=== PATIENT | male | born 1980 | race Caucasian/White ===

== ENCOUNTER 2022-01-22 15:38 | Inpatient (IN) | payer OTHER ==
[~2022-01-22] VITALS: Ht 170.2 cm; Wt 89.4 kg
[~2022-01-22 15:38] MED LIST: ASPI-1420 PO; CLOP75TA15 PO; SIMV-46 PO
--- NOTE | 2022-01-22 15:45 | NUR ---
RECEIVED PT 41 YRS MALE CAME FROM HOME C/O LOSS MEMMRY AWAKE AND ALERT RESPIRATION SPONT AND EASY MOVING ALL EXTMITY NO DIFFFECITY
--- NOTE | 2022-01-22 15:57 | NUR ---
PT TAKEN TO CT.
[2022-01-22] MEDS ORDERED: IV NS 0.9% 1,000 ML BAG IV ONE (16:00)
--- NOTE | 2022-01-22 16:00 | NUR ---
BLOOD DROW AND SENT TO LAB
[2022-01-22] MEDS ORDERED: IOHEXOL-350 100 ML VIAL IV ONE (16:01)
[2022-01-22] MEDS ORDERED: IV NS 0.9% 250 ML IV ONE (16:01)
[2022-01-22] MEDS ORDERED: CT SWABBABLE VALVE TRANS SET 1 EA INFUS.SET MC ONE (16:01)
[2022-01-22 16:21] LABS: BASOPHILS % (AUTO) 0.4 % (0.0-2.0); EOSINOPHILS % (AUTO) 0.3 % (0.0-6.0); HEMATOCRIT 45 % (39-51); HEMOGLOBIN 15.8 g/dL (13.5-17.5); LYMPHOCYTES # (AUTO) 1.4 K/uL (0.8-4.8); LYMPHOCYTES % (AUTO) 11.6 % (20.0-44.0); MEAN CORPUSCULAR HGB CONC 35 g/dl (31.0-36.0); MEAN CORPUSCULAR VOLUME 83 fL (80-96); MONOCYTES # (AUTO) 0.5 K/uL (0.1-1.30); MONOCYTES % (AUTO) 4.1 % (2.0-12.0); NEUTROPHILS # (AUTO) 10.2 K/uL (1.8-8.9); NEUTROPHILS % (AUTO) 83.6 % (43.0-81.0); PLATELET COUNT (AUTO) 333 K/uL (150-450); RED BLOOD CELL COUNT(AUTO) 5.43 MIL/uL (4.5-6.0); WHITE BLOOD COUNT (AUTO) 12.2 K/uL (4.3-11.0)
[2022-01-22 16:42] LABS: CALCIUM, SERUM 9.8 mg/dL (8.5-10.1); CARBON DIOXIDE 23 mmol/L (21-32); CHLORIDE 104 mmol/L (98-107); CREATININE 0.9 mg/dL (0.6-1.3); GLUCOSE 114 mg/dL (74-106); POTASSIUM 3.6 mmol/L (3.5-5.1); SODIUM SERUM 140 mmol/L (136-145); UREA NITROGEN, BLOOD 11 mg/dL (7-18)
--- NOTE | 2022-01-22 16:45 | NUR ---
MOVE SHEET SUBMITTED.
[2022-01-22 16:46] LABS: CHOLESTEROL 119 mg/dL (<200); HDL CHOLESTEROL 47 mg/dL (40-60); LDL 56 mg/dL (0-99); TRIGLYCERIDES 108 mg/dL (30-150)
[2022-01-22 16:48] LABS: ALANINE AMINOTRANSFERASE 44 U/L (12-78); ALBUMIN 4.5 g/dL (3.4-5.0); ALKALINE PHOSPHATASE 62 U/L (46-116); ASPARTATE AMINOTRANSFERASE 24 U/L (15-37); BILIRUBIN,DIRECT 0.1 mg/dL (0.0-0.2); BILIRUBIN,TOTAL 1.1 mg/dL (0.2-1.0); TOTAL PROTEIN, SERUM 7.6 g/dL (6.4-8.2)
[2022-01-22] MEDS ORDERED: ATOR20TA PO (16:50)
[2022-01-22] MEDS ORDERED: FAMO40TA7 PO (16:50)
[2022-01-22] MEDS ORDERED: VALS160T29 PO (16:50)
--- NOTE | 2022-01-22 17:00 | NUR ---
RESTING AT THIS TIME NO PAIN ON PHONE
--- NOTE | 2022-01-22 18:27 | NUR ---
[facility] CALLED TITLE INSPECTOR PAGED.
[2022-01-22] MEDS ORDERED: MAG HYDROX/AL HYDROX/SIMETH 30 ML UDC PO PRN (19:00)
[2022-01-22] MEDS ORDERED: Z GUARD REMEDY 4 OZ OINT TP PRN (19:00)
[2022-01-22] MEDS ORDERED: ONDANSETRON HCL/PF 4 MG/2 ML VIAL IVP PRN (19:00)
[2022-01-22] MEDS ORDERED: MAGNESIUM HYDROXIDE 30 ML UDC PO PRN (19:00)
[2022-01-22] MEDS ORDERED: ENALAPRILAT INJ (1.25 MG/ML) 1.25 MG/ML VIAL IV PRN (19:00)
--- NOTE | 2022-01-22 19:01 | NUR ---
ECCHCARDO GRAM AT BED SIDE
--- NOTE | 2022-01-22 19:15 | NUR ---
YENY WATKINS SENT TO LAB
--- NOTE | 2022-01-22 19:23 | NUR ---
RECIEVED CALL FROM DR BRANDON REQUESTING ICU BED UPGRADE DUE TO CONSULT WITH NEUROLOGIST JOSE
--- NOTE | 2022-01-22 19:24 | NUR ---
HAND OFF MELVI RODRIGUEZ
--- NOTE | 2022-01-22 20:19 | NUR ---
[facility]SA SWAB COLLECTED AND SENT TO LAB. PATIENT'S BELONGINGS LIST DONE.
--- NOTE | 2022-01-22 20:57 | NUR ---
JUANJO, [phone] PT IS OK TO GIVEN ANY INFORMATION ABOUT HIS CARE
--- NOTE | 2022-01-22 21:05 | NUR ---
REPORT GIVEN TO JENNIFER LIN FOR AYANA.
--- NOTE | 2022-01-22 21:19 | NUR ---
PATIENT TRANSFERRED UNDER ACLS
[2022-01-22 21:27] VITALS: BP 129/50
[2022-01-22] MEDS: IV NS 0.9% 1,000 ML IV SCH (21:37)
[2022-01-22] MEDS: BLOOD SUGAR DIAGNOSTIC 1 EACH STRIP IN SCH (21:38)
[2022-01-22] MEDS: ASPIRIN 325 MG TABLET PO SCH (21:38)
[2022-01-22 22:00] VITALS: BP 124/88
[2022-01-22] MEDS ORDERED: ATORVASTATIN 10 MG TABLET PO SCH (22:00)
--- NOTE | 2022-01-22 22:03 | NUR ---
ICU/RN: DR. SHRESTHA MADE AWARE OF STROKE SCALE RESULTS 2 AND SWALLOW EVAL RESULTS PASS.
[2022-01-22 23:00] VITALS: BP 115/71
[2022-01-23] VITALS (27 sets, daily range): BP systolic 97–157; BP diastolic 65–140
[2022-01-23] MEDS ORDERED: BLOOD SUGAR DIAGNOSTIC 1 EACH STRIP IN SCH
[2022-01-23 04:38] LABS: BASOPHILS # (AUTO) 0.1 K/uL (0.0-0.2); BASOPHILS % (AUTO) 0.4 % (0.0-2.0); EOSINOPHILS % (AUTO) 1.3 % (0.0-6.0); HEMATOCRIT 42 % (39-51); HEMOGLOBIN 14.5 g/dL (13.5-17.5); LYMPHOCYTES # (AUTO) 2.6 K/uL (0.8-4.8); LYMPHOCYTES % (AUTO) 22.5 % (20.0-44.0); MEAN CORPUSCULAR HGB CONC 35 g/dl (31.0-36.0); MEAN CORPUSCULAR VOLUME 84 fL (80-96); MONOCYTES # (AUTO) 0.9 K/uL (0.1-1.30); MONOCYTES % (AUTO) 7.7 % (2.0-12.0); NEUTROPHILS % (AUTO) 68.1 % (43.0-81.0); PLATELET COUNT (AUTO) 293 K/uL (150-450); WHITE BLOOD COUNT (AUTO) 11.7 K/uL (4.3-11.0)
[2022-01-23 04:49] LABS: CALCIUM, SERUM 8.9 mg/dL (8.5-10.1); CREATININE 0.7 mg/dL (0.6-1.3); MAGNESIUM 2.2 mg/dL (1.8-2.4); PHOSPHORUS 4.1 mg/dL (2.5-4.9); POTASSIUM 3.4 mmol/L (3.5-5.1)
--- NOTE | 2022-01-23 07:00 | NUR ---
RN NOTES RECEIVED PT ON BED, A/Ox2-3, FOLLOWS COMMAND, NO DISTESS NOTED, REFUSED TO EAT BREAKFAST, ON TELE SR ,CONTINUE TO MONITOR
[2022-01-23] MEDS ORDERED: POTASSIUM CHLORIDE 20 MEQ TAB.PRT.SR PO ONE (08:00)
[2022-01-23] MEDS: BLOOD SUGAR DIAGNOSTIC 1 EACH STRIP IN SCH ×4 (08:29→21:51)
[2022-01-23] MEDS: FAMOTIDINE (20 MG) 20 MG TABLET PO SCH (08:36)
[2022-01-23] MEDS: ASPIRIN 325 MG TABLET PO SCH (08:36)
[2022-01-23] MEDS ORDERED: VALSARTAN 80 MG TABLET PO SCH (09:00)
--- NOTE | 2022-01-23 10:00 | NUR ---
RN NOTE PATIENT ABLE TO USE URINAL, OUT OF THE BED TO BEDSIDE COMMODE WITH ASSIST.
--- NOTE | 2022-01-23 10:00 | NUR ---
RN NOTES OK TO GET EEG DONE IN AM PER DR BURGOS .
--- NOTE | 2022-01-23 11:36 | NUR ---
RN NOTES REPORT GVEN TO EARL RODRIGUEZ FOR CONTINUATION OF CARE.
--- NOTE | 2022-01-23 12:14 | NUR ---
RN NOTE RESUMED CARE OF PATIENT, PATIENT ALERT DISORIENTED. DOES NOT COMPLAIN OF PAIN OR SOB AT THIS TIME.
--- NOTE | 2022-01-23 12:28 | NUR ---
SS Note: SS received consult for stroke. Pt. Is a 41-year-old White male who demonstrates adequate insight to the reason for hospitalization. Per EMR, pt. presents the hospital for sudden altered mental status. Pt. was oriented x3, alert, and cooperative. During interview, pt. was capable of following directions and appeared groomed. Pt.s speech was at a normal rate and pt.s mood was elevated. Pt. reported no hx of mental health, substance abuse, pt. denies suicidal ideation, or homicidal ideation. Pt. denies auditory hallucinations, visual hallucinations, paranoia, or delusions. Per pt., she smokes marijuana occasionally, but it does not affect her daily life. SW explored pt.s living situation. Per pt., he lives with his [[id number] [place] [address]]. SW explored pt.s stroke hx. Per pt., he had 2 strokes in the past [about a year ago], and this would be his third. Pt. could not recall what happened prior to being hospitalized. Pt. stated that he is ambulatory and independent with his ADLs. Plan: SW provided available resources and pt. accepted. Upon discharge, per pt., he wants to return home with [[id number] [place] [address]]. SW access pt. with the PHQ9, pt. scored a 4, there is no need for a psych consult. Resources Provided: Stroke Empowerment Packet.
[2022-01-23] MEDS: IV NS 0.9% 1,000 ML IV SCH ×2 (12:52→22:53)
--- NOTE | 2022-01-23 15:10 | NUR ---
RN NOTE PATIENTS MOTHER BROUGHT IN PICTURES OF MEDICATION THE PATIENT TAKES AT HOME. MEDICATION WAS ENTERED UNDER MEDICATION RECONCILIATION DR ALEKSANDR ERWIN.
[2022-01-23] MEDS: ACETAMINOPHEN 325 MG TABLET PO PRN (16:45)
--- NOTE | 2022-01-23 18:49 | NUR ---
RN CLOSING NOTE PATIENT IS A/O 2-3, RESPONDS TO NAME DOES NOT COMPLAIN OF SOB OR PAIN AT THIS TIME. PATIENT IS ON ROOM AIR WITH O2 SAT 98%. IV ACCESS ON L AND RIGHT AC 18 G CURRENTLY RUNNING NS AT 75MLS/HR. PATIENTS MOTHER IS AT BEDSIDE. SAFETY MEASURES IN PLACE, CALL LIGHT WITHIN REACH, BED LOCKED IN THE LOWEST POSITION 2 SIDE RAILS UP. PATIENT REMINDED TO ASK FOR ASSISTANCE WHEN GETTING UP. WILL ENDORSE TO NIGHT NURSE FOR AYANA.
--- NOTE | 2022-01-23 20:00 | NUR ---
ICU NOTES PATIENT A/OX3 but forgetful.Ambulatory.Mother at bedside.VS stable.SR.Respiration even and unlabored.MRI BRAIN done.Patient denies pain or nausea on vomiting.IVF infusing & site intact. Safety precaution reinforced.Encouraged patient to call for assistance.Call light at bedside.
[2022-01-23] MEDS: CYANOCOBALAMIN 500 MCG TABLET PO SCH (21:52)
[2022-01-23] MEDS: CHOLECALCIFEROL (VITAMIN D 3) 400 UNIT TABLET PO SCH (21:52)
[2022-01-23] MEDS: ATORVASTATIN 10 MG TABLET PO SCH (21:52)
--- NOTE | 2022-01-23 22:00 | NUR ---
ICU NOTES Patient ambulated to restroom with standby assist does not want to use commode at bedside.Gait steady.BM x1.Verbalized comfort post BM.
[2022-01-24] VITALS (24 sets, daily range): BP systolic 108–180; BP diastolic 48–96
[2022-01-24] MEDS: ACETAMINOPHEN 325 MG TABLET PO PRN ×2 (02:36→16:39)
--- NOTE | 2022-01-24 03:00 | NUR ---
ICU NOTES Patient complaints of headache medicated with Tylenol ad prn.Verbalized relief.
--- NOTE | 2022-01-24 06:23 | NUR ---
END NOTE Patient resting in no acute distress.Neuro status unchanged.VSS.SR.Hemodynamically stable. Patient slept most of the night.Refused AM care.IVF infusing well.Safety precaution maintained. Call light at bedside.
[2022-01-24] MEDS: BLOOD SUGAR DIAGNOSTIC 1 EACH STRIP IN SCH ×4 (07:41→21:22)
--- NOTE | 2022-01-24 07:45 | NUR ---
RN OPENING NOTES PT RESTING IN BED A/O X 2-3. NO CHANGE FROM NEURO BASELINE. PT ON RA SATING AT 96%. TELE MONITOR READS SR. IV ACCESS NOTED AT L AND R AC 18G'S. RUNNING NS AT 75 ML/HR. ALL SAFETY MEASURES IN PLACE. WILL CONT TO MONITOR THROUGHOUT SHIFT.
[2022-01-24] MEDS ORDERED: POTASSIUM CHLORIDE 20 MEQ TAB.PRT.SR PO ONE (08:00)
[2022-01-24] MEDS: ASPIRIN 325 MG TABLET PO SCH (08:17)
[2022-01-24] MEDS: CLOPIDOGREL BISULFATE 75 MG TABLET PO SCH (08:18)
[2022-01-24] MEDS: cetrizine 10 MG TABLET PO SCH (08:18)
[2022-01-24] MEDS: MULTIVITAMINS,THERAGRAN 1 UDTAB TABLET PO SCH (08:18)
[2022-01-24] MEDS: FAMOTIDINE (20 MG) 20 MG TABLET PO SCH ×2 (08:18)
[2022-01-24] MEDS ORDERED: FEXOFENADINE HCL (60 MG) 60 MG TABLET PO SCH (09:00)
[2022-01-24] MEDS ORDERED: ASPIRIN 325 MG TABLET PO SCH (09:00)
[2022-01-24] MEDS ORDERED: VALSARTAN 80 MG TABLET PO SCH (09:00)
[2022-01-24] MEDS: IV NS 0.9% 1,000 ML IV SCH (10:17)
--- NOTE | 2022-01-24 17:42 | NUR ---
Report given to Juan RODRIGUEZ in [facility]. Pt is ready to transfer after finishing dinner.
--- NOTE | 2022-01-24 18:38 | NUR ---
PT TRANSFERRED TO [address] [place] [address] 328 BED 2 SUCCESSFULLY WITHOUT COMPLICATION. REPORT GIVEN TO HERMANN RODRIGUEZ.
--- NOTE | 2022-01-24 20:26 | NUR ---
RN NOTES RECEIVED PATIENT IN BED, ALERT/ORIENTED X3, ROOM AIR, NO COMPLAIN OF PAIN, NO DISTRESS, GENERALIZED WEAKNESS, TRANSFERRED FROM ICU, SR ON THE TELE, KEPT SAFE, WILL CONTINUE TO MONITOR.
[2022-01-24] MEDS: CYANOCOBALAMIN 500 MCG TABLET PO SCH (21:06)
[2022-01-24] MEDS: CHOLECALCIFEROL (VITAMIN D 3) 400 UNIT TABLET PO SCH (21:06)
[2022-01-24] MEDS: ATORVASTATIN 10 MG TABLET PO SCH (21:07)
[2022-01-25] VITALS: BP 110/80
[2022-01-25] MEDS: IV NS 0.9% 1,000 ML IV SCH ×2 (00:20→06:24)
[2022-01-25] MEDS: ACETAMINOPHEN 325 MG TABLET PO PRN ×2 (03:40→10:29)
[2022-01-25 04:00] VITALS: BP 124/85
[2022-01-25] MEDS: BLOOD SUGAR DIAGNOSTIC 1 EACH STRIP IN SCH ×2 (06:41→12:11)
--- NOTE | 2022-01-25 06:50 | NUR ---
RN NOTES ALERT/ORIENTED X4, STABLE ON ROOM AIR, GIVEN TYLENOL FOR HEADACHE, NO NEURO DEFICITS, AMBULATES, CONTINENT OF BOWEL AND BLADDER. NS AT 75 ML/HR, ACCUCHECK WITHOUT SLIDING SCALE. VS STABLE, AFEBRILE. PER DR. BERG, OUTPATIENT FOLLOW UP FOR ANEURYSM. DR. BERG WILL PROVIDE REFERRAL TO NEURO INTERVENTIONAL TEAM.
[2022-01-25 07:06] LABS: BASOPHILS % (AUTO) 0.5 % (0.0-2.0); EOSINOPHILS % (AUTO) 2.1 % (0.0-6.0); HEMATOCRIT 45 % (39-51); HEMOGLOBIN 15.6 g/dL (13.5-17.5); LYMPHOCYTES # (AUTO) 2.3 K/uL (0.8-4.8); LYMPHOCYTES % (AUTO) 26.7 % (20.0-44.0); MEAN CORPUSCULAR HGB CONC 35 g/dl (31.0-36.0); MEAN CORPUSCULAR VOLUME 84 fL (80-96); MONOCYTES # (AUTO) 0.8 K/uL (0.1-1.30); NEUTROPHILS # (AUTO) 5.2 K/uL (1.8-8.9); NEUTROPHILS % (AUTO) 61.7 % (43.0-81.0); PLATELET COUNT (AUTO) 318 K/uL (150-450); RED BLOOD CELL COUNT(AUTO) 5.31 MIL/uL (4.5-6.0); WHITE BLOOD COUNT (AUTO) 8.4 K/uL (4.3-11.0)
[2022-01-25 07:29] LABS: CALCIUM, SERUM 9.2 mg/dL (8.5-10.1); CREATININE 0.8 mg/dL (0.6-1.3); POTASSIUM 3.8 mmol/L (3.5-5.1)
[2022-01-25 08:00] VITALS: BP 118/79
--- NOTE | 2022-01-25 08:12 | NUR ---
RN OPENING NOTE PATIENT AWAKE IN BED RESTING, A/O X 3-4. NO S/S OF PAIN NOTED AT THIS TIME. ON ROOM AIR, NO DISTRESS OR SHORTNESS OF BREATH NOTED. IV ACCESS, RAC #18G, INTACT PATENT AND FLUSHING WELL. PATIENT ON EXTERNAL MEDICAL PAYMENT POSTER WITH CURRENT READING OF SR AND HR OF 92, NO CARDIAC DISTRESS NOTED. FALL AND SAFETY MEASURES IN PLACE, BED ALARM ON, BED IN LOW AND LOCK POSITION, CALL LIGHT AND TABLE WITHIN EASY REACH, SIDE RAILS UP X2. WILL CONTINUE TO MONITOR.
[2022-01-25] MEDS: CLOPIDOGREL BISULFATE 75 MG TABLET PO SCH (09:58)
[2022-01-25] MEDS: MULTIVITAMINS,THERAGRAN 1 UDTAB TABLET PO SCH (09:58)
[2022-01-25] MEDS: ASPIRIN 325 MG TABLET PO SCH (09:59)
[2022-01-25] MEDS: FAMOTIDINE (20 MG) 20 MG TABLET PO SCH (09:59)
[2022-01-25] MEDS: cetrizine 10 MG TABLET PO SCH (11:53)
--- NOTE | 2022-01-25 11:53 | NUR ---
RN NOTE PATIENT MEDICATION CETRIZINE 10MG WAS ADMINISTERED LATE, MEDICATION WAS NOT IN THE MEDICATION ROOM, MEDICATION WAS ADMINISTERED WHEN PHARMACY DELIVERED IT.
[2022-01-25] MEDS ORDERED: ASPI-1169 PO (12:26)
[2022-01-25] MEDS ORDERED: CLOP75TA15 PO (12:26)
--- NOTE | 2022-01-25 14:00 | NUR ---
PATROL INSPECTOR NOTE PATIENT DISCHARGE IN STABLE CONDITION. A/O X4. V/S TAKEN, STABLE AND RECORDED. NO IV ACCESS. SKIN ASSESSMENT DONE, SKIN INTACT. NAME ARM BAND REMOVED. ALL BELONGINGS CHECKED AND SIGNED. HEALTH TEACHING AND DISCHARGE INSTRUCTIONS GIVEN AND VERBALIZED UNDERSTANDING. PATIENT LEFT UNIT AMBULATING, WITH NO SIGNS OF DISTRESS, ACCOMPANIED BY ELECTRO MECHANIC TO THE LOBBY. CHARGE NURSE AWARE OF DISCHARGED.
== END 2022-01-25 14:00 | disposition home or self-care (01) | DRG 66 ==
LOC: ER 15:39 → ICU 20:42 → TELE 01-24 18:24
PROVIDERS: ADMIT Internal Medicine; ATTEND Internal Medicine
DX: I63.9 Cerebral infarction, unspecified (principal); F98.8 Other specified behavioral and emotional disorders with onset usually occurring in childhood and adolescence; Z79.02 Long term (current) use of antithrombotics/antiplatelets; Z79.82 Long term (current) use of aspirin; Z79.899 Other long term (current) drug therapy; R41.3 Other amnesia; F32.9 Major depressive disorder, single episode, unspecified; E78.5 Hyperlipidemia, unspecified; I10 Essential (primary) hypertension; K21.9 Gastro-esophageal reflux disease without esophagitis; Z86.73 Personal history of transient ischemic attack (TIA), and cerebral infarction without residual deficits; Z86.79 Personal history of other diseases of the circulatory system; I67.1 Cerebral aneurysm, nonruptured; I65.21 Occlusion and stenosis of right carotid artery; F12.20 Cannabis dependence, uncomplicated
CPT/HCPCS: 36415; 70450-TC; 70496-TC; 70498-TC; 70551-TC; 71045-TC; 80048-TC; 80061-TC; 80076-TC; 82962-TC; 83735-TC; 84100-TC; 84484-TC; 85025-TC; 85730-TC; 87081-TC; 92526; 92611-TC; 93307-TC; 95819-TC; 97116-TC; 97530-TC; 97535-TC; C9803; G0378; J7030; J7050; Q9967